=== PATIENT | male | born 1970 | race African-American/Black ===

== ENCOUNTER 2017-05-05 08:55 | Emergency (ER) | payer SELFPAY ==
[~2017-05-05] VITALS: Ht 165.1 cm; Wt 73.6 kg
[2017-05-05 08:59] VITALS: BP 133/77
[2017-05-05] MEDS ORDERED: PEN-VEE K,VEET500 MG PO (09:30)
[2017-05-05] MEDS ORDERED: NAPROXEN500 MG PO (09:30)
== END 2017-05-05 09:40 | disposition home or self-care (01) ==
LOC: EME 08:55
DX: K08.89 Other specified disorders of teeth and supporting structures (principal); K02.9 Dental caries, unspecified
CPT/HCPCS: 99281; 99283